=== PATIENT | female | born 1955 | race Caucasian/White ===

== ENCOUNTER 2017-09-05 07:05 | Day surgery (SDC) | payer OTHER ==
[~2017-09-05] VITALS: Ht 154.9 cm; Wt 65.8 kg
[2017-09-05] MEDS ORDERED: BUPIVACAINE-MPF 0.25% 30 ML VIAL INJ ONE (07:44)
[2017-09-05] MEDS ORDERED: ceFAZolin 1,000 MG VIAL ONE (07:44)
[2017-09-05] MEDS ORDERED: LIDOCAINE MPF 1% - 5 mL VIAL 5 ML ONE (07:45)
[2017-09-05] MEDS ORDERED: CEFAZOLIN SODIUM 1 GM/D5W PM 50 ML IV SCH (08:00)
[2017-09-05] MEDS ORDERED: MULT-153 PO (08:18)
[2017-09-05] MEDS ORDERED: PROPOFOL 200 MG/20 ML VIAL IV ONE (09:05)
[2017-09-05] MEDS ORDERED: MIDAZOLAM 2 MG/2 ML VIAL ONE (09:10)
[2017-09-05] MEDS ORDERED: fentaNYL 0.05 MG/ML VIAL ONE (09:11)
[2017-09-05] MEDS ORDERED: LACTATED RINGERS 1,000 ML IV SCH (09:57)
[2017-09-05] MEDS ORDERED: HYDROmorphone 1 MG/ML AMP IVP PRN ×2 (10:00→10:20)
[2017-09-05] MEDS ORDERED: diphenhydrAMINE 50 MG/ML VIAL IVP PRN (10:00)
[2017-09-05] MEDS ORDERED: ONDANSETRON 4 MG/2 ML VIAL IVP PRN (10:00)
[2017-09-05] MEDS ORDERED: MEPERIDINE 25 MG/ML SYR IVP PRN (10:00)
[2017-09-05] MEDS ORDERED: MORPHINE SULFATE 2 MG/ML SYR IVP PRN (10:20)
[2017-09-05] MEDS ORDERED: HYDROcodone/APAP 5/325 MG 1 TAB TAB PO PRN ×2 (10:20)
[2017-09-05] MEDS ORDERED: ONDANSETRON 4 MG/2 ML VIAL IV PRN (10:20)
[2017-09-05] MEDS ORDERED: MORPHINE SULFATE 4 MG/ML SYR IV PRN (10:20)
== END 2017-09-05 12:20 | disposition home or self-care (01) ==
LOC: MDS 07:05 → MMU 07:06 → MDS 12:20
PROVIDERS: ATTEND Surgery
DX: C77.3 Secondary and unspecified malignant neoplasm of axilla and upper limb lymph nodes (principal); Z90.710 Acquired absence of both cervix and uterus
CPT/HCPCS: 36415; 36561; 71045; 76001; 76937; 77001; 86886; 86900; 86901; 93005; C1751; J0690; J1644; J2001; J2250; J2704; J3010; J3490; J7030; J7120; Q0092